=== PATIENT | female | born 1960 | race Caucasian/White ===

== ENCOUNTER → 2018-12-23 09:54 | Outpatient (CLI) | payer BC, SELFPAY ==
--- NOTE | 2018-12-23 10:08 | RAD_ITS ---
HISTORY: INFLAMMATORY POLYARTHROPATHY EXAM: Pelvis COMPARISON: None FINDINGS: # of images incl. paperwork: 1 No acute fracture of pelvis. Proximal femurs are intact. Sacroiliac joints and hip joints are normal. Femoral heads are adequately seated in their respective acetabulae. RAD/Pelvis 1 or 2 Views IMPRESSION: Normal AP pelvis. at 2320 Reported and signed by: Ronnie Grier MD Electronically Signed: Ronnie Grier MD at 23:19 EDT Tel , Service support ,
[2018-12-23 12:08] LABS: Erythrocyte Sedimentation Rate 18 mm/hr (0-30)
[2018-12-23 12:14] LABS: Absolute Neutrophil Count 8.5 X10^3/uL (2.0-7.7); Basophil# 0.04 X10^3/uL; Basophil% 0.4 % (0-1); Eosinophil# 0.14 X10^3/uL; Eosinophils% 1.3 % (0-5); Hematocrit 43.9 % (37-47); Hemoglobin 14.1 g/dl (12.0-15.0); Lymphocyte % 12.7 % (19-41); Mean Corp Hgb Conc 32.1 g/gl (32-36); Mean Corpuscular Hgb 28.7 pg (27.0-32.0); Mean Corpuscular Volume 89.2 fL (81-99); Monocyte# 0.95 X10^3/uL; Monocyte% 8.6 % (0-10); Neutrophil # 8.47 X10^3/uL (2.7-7.7); Neutrophil % 76.7 % (47-70); Platelet Count 334 K/mm3 (150-450); RBC Distribution Width CV 13.3 % (11.6-14.6); Red Blood Count 4.92 M/mm3 (4.2-5.4)
[2018-12-23 12:15] LABS: POSITIVE COUNT NO; POSITIVE DIFFERENTIAL NO; POSITIVE MORPHOLOGY NO
[2018-12-23 12:51] LABS: ALB/GLOB Ratio 0.9 RATIO (0.9-2.4); AST(SGOT) 15 U/L (15-37); Alanine Aminotransfer ALT/SGPT 22 U/L (13-56); Albumin, Serum 3.6 g/dL (3.2-5.0); Alkaline Phosphatase 105 U/L (45-117); Anion Gap 10 (5-15); BUN 18 mg/dL (7-18); BUN/Creat Ratio 22.5 RATIO (10-20); Calcium,Total 9.3 mg/dL (8.5-10.1); Chloride 106 mmol/L (98-107); EST Glomerular Filtration Rate 78 mL/min (>60); Est Glom Filt Rate - Afr Amer 94 mL/min (>60); Globulin 4.2 g/dL (2.2-4.2); Glucose 70 mg/dL (74-106); Potassium 4.1 mmol/L (3.5-5.1); Protein, Total 7.8 g/dL (6.4-8.2); Rheumatoid Factor < 10.0 IU/mL (<15); Sodium Level 143 mmol/L (136-145)
[2018-12-24 12:07] LABS: SJOGREN'S Anti-SS-A test < 0.2 AI (0.0-0.9); SJOGREN'S Anti-SS-B test < 0.2 AI (0.0-0.9)
[2018-12-25 12:24] LABS: ANTINUCLEAR ANTIBODIES DIRECT Negative (Negative)
[2018-12-30 11:15] LABS: CCP IgG Antibodies 6 units (0-19); HEPATITIS B SURFACE AG Negative (Negative); HLA B27 Negative (.); Hep B Surface Antibodies Non Reactive (.); Hep C Antibodies 0.1 s/co ratio (0.0-0.9)
== END ==
PROVIDERS: Family Provider Student in an Organized Health Care Education/Training Program; PCP Student in an Organized Health Care Education/Training Program; Referring Provider Internal Medicine Rheumatology; Visit Provider Internal Medicine Rheumatology
DX: M06.4 Inflammatory polyarthropathy (principal); F32.89 Other specified depressive episodes; F41.9 Anxiety disorder, unspecified
CPT/HCPCS: 36415; 72170; 80053; 81374; 85025; 85652; 86038; 86140; 86200; 86235; 86431; 86706; 86803; 87340

== ENCOUNTER → 2019-03-23 15:55 | Outpatient (CLI) | payer BC, SELFPAY ==
[2019-03-23 17:31] LABS: Absolute Lymphocyte Count 1.78 X10^3/uL (0.83-4.51); Absolute Neutrophil Count 6.2 X10^3/uL (2.0-7.7); Basophil# 0.07 X10^3/uL; Basophil% 0.8 % (0-1); Eosinophil# 0.21 X10^3/uL; Eosinophils% 2.3 % (0-5); Hematocrit 41.1 % (37-47); Hemoglobin 13.6 g/dL (12.0-15.0); Lymphocyte # 1.78 X10^3/ul (4.0); Lymphocyte % 19.5 % (19-41); Mean Corp Hgb Conc 33.1 g/dL (32-36); Mean Corpuscular Hgb 30.8 pg (27.0-32.0); Mean Platelet Vol. 10.5 fl (6.2-12.0); Monocyte# 0.78 X10^3/uL; Monocyte% 8.6 % (0-10); NRBC Flagged by Analyzer 0 % (0-5); Neutrophil # 6.23 X10^3/uL (2.7-7.7); Neutrophil % 68.3 % (47-70); Platelet Count 303 K/mm3 (150-450); RBC Distribution Width CV 13.4 % (11.6-14.6); RBC Distribution Width SD 45.3 fl (35.1-43.9); Red Blood Count 4.42 M/mm3 (4.2-5.4); White Blood Count 9.1 K/mm3 (4.4-11.0)
[2019-03-23 17:58] LABS: ALB/GLOB Ratio 1.1 RATIO (0.9-2.4); AST(SGOT) 18 U/L (15-37); Alanine Aminotransfer ALT/SGPT 23 U/L (13-56); Albumin, Serum 3.8 g/dL (3.2-5.0); Alkaline Phosphatase 87 U/L (45-117); Anion Gap 8 (5-15); BUN 14 mg/dL (7-18); BUN/Creat Ratio 15.9 RATIO (10-20); Calcium,Total 9.2 mg/dL (8.5-10.1); Chloride 109 mmol/L (98-107); Creatinine, Serum 0.88 mg/dL (0.55-1.02); EST Glomerular Filtration Rate 70 mL/min (>60); Est Glom Filt Rate - Afr Amer 84 mL/min (>60); Globulin 3.6 g/dL (2.2-4.2); Glucose 84 mg/dL (74-106); Potassium 3.9 mmol/L (3.5-5.1); Protein, Total 7.4 g/dL (6.4-8.2); Sodium Level 142 mmol/L (136-145)
== END ==
PROVIDERS: Family Provider Student in an Organized Health Care Education/Training Program; PCP Student in an Organized Health Care Education/Training Program; Referring Provider Internal Medicine Rheumatology; Visit Provider Internal Medicine Rheumatology
DX: M06.4 Inflammatory polyarthropathy (principal); F41.9 Anxiety disorder, unspecified; F32.89 Other specified depressive episodes; Z79.899 Other long term (current) drug therapy
CPT/HCPCS: 36415; 80053; 85025

== ENCOUNTER 2022-03-18 07:27 | Outpatient (RCR) | payer BC, SELFPAY | END 2022-03-20 23:59 | LOC: NS 07:27 | PROVIDERS: PCP Student in an Organized Health Care Education/Training Program; Referring Provider Student in an Organized Health Care Education/Training Program; Visit Provider Student in an Organized Health Care Education/Training Program | DX: Z71.3 Dietary counseling and surveillance (principal); E66.9 Obesity, unspecified; Z68.36 Body mass index [BMI] 36.0-36.9, adult | CPT/HCPCS: 97802 ==

== ENCOUNTER 2022-04-09 07:48 | Outpatient (RCR) | payer BC, SELFPAY | END 2022-04-19 23:59 | LOC: NS 07:48 | PROVIDERS: PCP Student in an Organized Health Care Education/Training Program; Referring Provider Student in an Organized Health Care Education/Training Program; Visit Provider Student in an Organized Health Care Education/Training Program | DX: Z71.3 Dietary counseling and surveillance (principal); E66.9 Obesity, unspecified; Z68.36 Body mass index [BMI] 36.0-36.9, adult | CPT/HCPCS: 97803 ==

== ENCOUNTER → 2022-04-25 | Outpatient (CLI) | payer BC, SELFPAY ==
--- NOTE | 2022-04-25 16:21 | CT_ITS ---
STUDY: CT OF THE RIGHT LOWER EXTREMITY WITHOUT CONTRAST REASON FOR EXAM: Female, 61 years old. Templating for right TKA. RADIATION DOSAGE (If Supplied By Facility): CTDIvol = ( 19.15 ) mGy, DLP = ( 2436.43 ) mGycm. Individualized dose optimization techniques were used for this CT.? TECHNIQUE: Contiguous axial images of the right hip, knee and ankle were obtained without contrast. Coronal and sagittal reconstruction and bone and soft tissue algorithm images were obtained. COMPARISON: None. FINDINGS: Osteopenia. Moderate arthrosis of the symphysis pubis. Mild arthrosis of the right hip. Moderate to marked arthrosis of the medial femorotibial compartment with osteophytes and subchondral sclerosis. Moderate arthrosis of the lateral femorotibial compartment with osteophyte formation. Moderate arthrosis of the patellofemoral compartment with osteophyte formation. Mild arthrosis of the tibiotalar and subtalar joints. Inferior calcaneal spur. CT/Extremity Lower without Contra IMPRESSION: Osteopenia with osteoarthritic changes as described. No other significant abnormality. Electronically Signed: Chico Holley, at 10:49 EDT ,
== END | disposition home or self-care (01) ==
PROVIDERS: PCP Student in an Organized Health Care Education/Training Program; Referring Provider Orthopaedic Surgery; Visit Provider Orthopaedic Surgery
DX: M17.11 Unilateral primary osteoarthritis, right knee (principal)
CPT/HCPCS: 73700

== ENCOUNTER 2022-05-21 05:27 | Day surgery (SDC) | payer BC, SELFPAY ==
[2022-05-10 14:08] LABS: Prothrombin Time (Protime)PT. 12.7 SECONDS (11.7-14.9)
[2022-05-10 14:09] LABS: Partial Thromboplast Time 26.1 Seconds (24.1-36.2)
[2022-05-10 14:14] LABS: Hemoglobin A1c 5.6 % (3.8-5.6); Magnesium 2.2 mg/dL (1.6-2.6)
[2022-05-12 09:15] LABS: Fructosamine 215 umol/L (0-285)
[2022-05-21] VITALS (9 sets, daily range): BP systolic 102–139; BP diastolic 58–74; PULSE 58–68; RESP 16; TEMP 36–36.8; O2SAT 92–99; BMI 40.1
[2022-05-21] MEDS: Gabapentin 600 MG Tablet PO (06:52)
[2022-05-21] MEDS: Acetaminophen 500 MG Tablet 1000 MG PO ×2 (06:52→14:23)
[2022-05-21] MEDS: Scopolamine 1mg/72hr Patch 1 PATCH TD (06:52)
[2022-05-21] MEDS: Celecoxib 200 MG Capsule 400 MG PO (06:52)
[2022-05-21] MEDS: Lactated Ringers 1,000 ML 15 ML IV (06:59)
[2022-05-21] MEDS: Magnesium 1 GM over 15 mins IV (07:09)
[2022-05-21 07:10] LABS: Bedside Glucose 114 mg/dL (74-106)
--- NOTE | 2022-05-21 07:17 | PCM.HP.BLA ---
History and Physical Date of Admission: 05/21/22 [facility] [address] [place] [address] OFFICE VISIT Date of Service:? 02/06/22 MR#: [id number] Acct: [id number] Name:JOSHUA MARTE Rep #: [id number] : 1960 ? ? Provider: Dr. Chris Burrell, Age/Sex:? 61/F ? ? [place] [facility] [place] Status: Signed Intake Intake Visit Reasons:?RIGHT KNEE Allergies No Known Allergies Allergy (Verified 10/15/21 09:26) Medications citalopram 20 mg tablet tablet PO 10/15/21 [History Confirmed 02/06/22] PFSH Surgical History?(Updated 02/06/22 @ 13:57 by Chelsie Arzate) History of arthroscopy of left knee Social History?(Updated 10/15/21 @ 09:28 by Geraldine Smith) household members:? significant other Smoking Status:? Never smoker HPI RIGHT KNEE Details: Parts of this documentation were recorded by a scribe, this documentation accurately reflects the service provided and the decisions made by me, Dr. Chris Burrell, DO 02/06/22 0756. JOSHUA SCHMIDT is a 61 year old F here today for? F/U on the right knee. She states that the steroid injection she had in 09/2021 was helpful until recently. She is here today to discuss other options for the pain. She states that she has had Visco injections previously which was not helpful at the time. She had these completed at [facility] prior to transferring her care to our office. Denies any PT, denies any bracing. She states that the pain is constant. She feels that the knee will give out on her at times. She states that the giving out is painful. She states that most of her pain is anterior medial. Denies any radiating pereira. Denies numbness, tingling or other associated symptoms. Ortho Exam General General: Yes no acute distress Neurologic: Yes alert and Yes oriented x3 Psychologic: Yes reasonable and appropriate Right Knee Skin/Wound: No erythema, No ecchymosis and No swelling Homans Sign: No Knee ROM: Yes ROM-Extension -20 to 0 and No ROM-Flexion 0-140 (120) Examination: Yes Med jt line tenderness, Yes Crepitus and Yes TTP Pes Anserine Stability: NML: Anterior Drawer, NML: Posterior Drawer and NML: Varus 30 and 1+: Valgus 30 (3mm medial gapping d/t joint space narrowing) Patella Grind: Yes KNEE: no joint effusion Office Procedures Ortho Injections Injections Yes Knee Right and Yes Pes anserine Bursa Injection Right Details: Obtained consent for injection.? Under sterile conditions, injected the patient's right knee with 1.5cc bupivacaine, 1.5cc lidocaine and 1.5cc Kenalog.? The patient tolerated the injection well without any noted complication.? Patient should call our office if redness develops, pain worsens or if they have any concerns. Obtained consent for injection.? Under sterile conditions, injected the patients right pes anserine bursa with 1cc Bupivacaine, 1cc Lidocaine and 1cc Kenalog.? The patient tolerated the injection well without any noted complication.? Patient should call our office if redness develops, pain worsens or if they have any concerns. Office [facility]in [facility] Performing Provider: Chris Burrell DO Administered by: Chris Burrell DO on 02/06/22 14:28 Dose Route Admin Location Lot Number Expiration Date NDC Emergency Generator Mechanic 100 mg intra-articular right knee, pes bursa inj [id number] 12/19/22 3199-4079-28 [facility] Supplemental Info 02/06/2022 x-ray right knee: Severe medial joint space narrowing with varus deformity moderate patellofemoral arthrosis mild to moderate spurring of the lateral compartment Coding Level of Care Code Off vis,est,level 3 Diagnoses Osteoarthritis of right knee? M17.11 Pes anserine bursitis? M70.50 CPT Codes sap basis consultant.pes () sap basis consultant.knee () Assessment and Plan Assessment and Plan (1) Osteoarthritis of right knee: ?Status:?Acute (2) Pes anserine bursitis: ?Status:?Acute ? ? ? Orders: Orders Ortho Injections Today M17.11 - Unilateral primary osteoarthritis, right knee, M70.50 - Other bursitis of knee, unspecified knee ? Knee 4 or More Views Today M17.11 - Unilateral primary osteoarthritis, right knee ? Plan Obtained X-rays of patient's right knee. Personally reviewed x-rays. There is no obvious fracture, dislocation, or lucency noted. Patient educated that she has severe medial sided joint space narrowing along with patellofemoral OA. Treatment options are do nothing or repeat steroid injection or NSAID or PT for strengthening or chlorine cells operator bracing or TKA.?Risks, benefits and alternatives of surgery reviewed including but not limited to bleeding, infection, nerve, artery and/or tissue damage, fracture, VTE, mechanical feel of the knee, continued pain, stiffness and expected post-operative course. She wishes to proceed with steroid injection of the right knee and a pes anserine bursa injection. Pt aware that she cant have a TKA for 3 months after the injections. Follow up PRN or sooner if pain, swelling, numbness or associated symptoms, or concerns develop.? All questions answered. Patient in agreement of plan. 02/06/22 1451 <Electronically signed by Chris Burrell DO> Date Chris Burrell DO Cosigner Signature: Date (if applicable) ? CC: ? ~I have examined the patient and the H&P has been reviewed. There are no clinical changes since date of exam.
[2022-05-21] MEDS: Cefazolin 2 GM in 0.9% Normal Saline 100 ML IV ×2 (08:03→11:17)
[2022-05-21] MEDS: dexAMETHasone 10 MG/ML Vial IV (08:15)
[2022-05-21] MEDS: TXA 1000mg in NS100 100ml (IVPB at Incision) 660 MG IV (08:15)
--- NOTE | 2022-05-21 08:15 | KNEE_PTH ---
PATIENT: JOSHUA SCHMIDT [place] [facility] [id number] AGE/SX: 61/F ROOM: RE05/21/[address]: Dr. Chris Burrell DO : 1960 BED: DIS: 05/21/2022 SPEC #: [id number] RECD: 05/21/22 13:22 STATUS: HESHAM RERoger #: [id number] JOSSE: 05/21/22 08:[address]: Chris Burrell DEPT: SURGICAL PATHOLOGY RECD BY: Meri Christianson ENTERED: 05/21/22 13:39 SP TYPE: TOTAL KNEE OTHR DR: Dr. Storm Pickett, Tissues: Knee, NOS Procedures: Decalcification bone/plaque Surgery Specimen Level IV HEADER OPERATION: ERAS, total knee replacement robotic arm assist PRE-OP DIAGNOSIS: Osteoarthritis of right knee, pes anserine bursitis TISSUE SUBMITTED: Bone and soft tissue right knee MICROSCOPIC DIAGNOSIS Bone and tissue of right knee, total knee resection: Severe degenerative joint disease. Mild synovial hyperplasia. AM:tahira 05/24/2022 MICROSCOPIC DESCRIPTION Slides are reviewed. GROSS DESCRIPTION Received is one container designated bone and soft tissue right knee. The specimen consists of multiple fragments of ward-yellow bone measuring in aggregate 16 x 10 x 2 cm. Also in the specimen container are multiple fragments of yellow-white soft tissue measuring in aggregate 2 x 1.5 x 0.5 cm. A number of bony fragments contain articular surfaces consistent with tibial plateau and femoral condyle and displaying prominent osteophyte formation, eburnation, and bone erosion. Information Security Associate sections are submitted in two cassettes as follows: 1 - soft tissue, 2 - bone after decalcification. / AM:tahira 05/21/2022 TC:5 [facility]: [id number], [id number]
[2022-05-21] MEDS: TXA 1000mg in NS100 100ml (IVPB at Closure) 660 MG IV (08:48)
[2022-05-21] MEDS: Lactated Ringers 1,000 ML 125 ML IV (09:01)
[2022-05-21] MEDS: 0.9% Normal Saline (Pres. free 10 ML Vial (09:38)
[2022-05-21] MEDS: Bupivacaine 0.25% 30 ML Vial (09:38)
[2022-05-21] MEDS: Betamethasone/Betamethasone 30 MG/5 ML Vial (09:38)
[2022-05-21] MEDS: Epinephrine (1 mg/ml) 1 MG/ML VIAL (09:38)
--- NOTE | 2022-05-21 10:17 | OP.PCM_ITS ---
Operative Report Date of Procedure: 05/21/22 Preoperative diagnosis: Right knee DJD Postoperative diagnosis: Same Procedure: Right total knee arthroplasty CT guided Robotic Assisted Implant: Plover triathlon press fit, femoral component size3, tibial baseplate size 4, asymmetric patella size 35, polyethylene X3 size 9 CS Anesthesia: Spinal with adductor canal block Tourniquet time: 18 minutes at 300 mmHg Complications: None Condition: Stable to PACU Estimated blood loss: 250 cc Indication for procedure: This is a 61-year-old female with long standing degenerative joint disease of the knee who has failed conservative treatment and wished to proceed with elective total knee arthroplasty. Risk benefits and alternatives were reviewed including; risk of bleeding, infection, nerve artery and tissue damage, continued pain, postoperative stiffness, venous thromboembolism, need for postoperative rehabilitation, mechanical feel to the knee, and expected postoperative course. The pre- operative CT and templating was performed with component sizing. Procedure: The patient was met in the preoperative holding area. The operative extremity was identified by both patient and physician and was marked. Patient was met by anesthesia. An adductor canal block was placed by anesthesia postoperatively the patient was brought back to the operating room on a wheeled cart and transferred to the operating table in the supine position. Anesthesia was started. A well-padded tourniquet was placed on the operative extremity. The patient was prepped and draped in the usual sterile fashion. A timeout was called to ensure the proper patient procedure and extremity were being contemplated. An esmarch was used to exsanguinate the extremity. The tourniquet was inflated. A 10 blade scalpel was used to make a midline incision down through the skin and subcutaneous tissue. Skin retractors placed. Bovie and Aquamantis were used to perform meticulous hemostasis. full-thickness flaps were elevated medial and lateral along the joint capsule. A deep blade scalpel was used to perform a medial parapatellar arthrotomy. The knee was brought to full extension. A bovie was used to release the soft tissues off the most proximal aspect of the medial tibial plateau, a three-quarter inch curved osteotome was also used in this process. The infrapatellar fat pad was excised. The suprapatellar fat pad was excised partially anteriorolateraly and portion the anterioromedial pad was elevated from the femur. At this point our intra- articular femoral array was placed at a 45 degree angle proximal and posterior to the medial epicondyle. femoral checkpoint was placed at this time. Our tibial array was placed greater than 1 hands breath below the incision at a 20 degree angle stab incisions were made with a 15 blade scalpel and pins were placed and attached to the tibial array , tibial checkpoint was placed in the pr oximal tibial metaphysis. Tourniquet was let down. At this point registration villalpando were taken throughout the knee . Once the knee was registered we then tensioned the medial and lateral ligaments in extension and 90 degrees of flexion. We then used these numbers to adjust our components within parameters to balance the knee in both flexion and extension once this was done on our monitor we then proceeded with using the robotic arm to make our tibial plateau cut, anterior and posterior chamfer and distal femur cuts. we removed the cut fragments with the use of a bovie and Sola, we did use a lamina pattern assembler to insure we visualized and removed all posterior osteophytes and at this time also used the Aquamantis on the posterior joint capsule. we then trialed and achieved the desired plan with a well-balanced knee. we used the green probe to darwin the corresponding tibial rotation based on our CT template. Lug holes were drilled in the femur the tibia preparation was completed with the appropriate sized base plate pinned based on previous rotation darwin. An appropriate sized fin punch was used on the tibia and 4 corner drill was used for the press fit component and the patella was prepared by first using a caliper to ensure sufficient bone stock and a patellar reamer to remove the desired amount of bone. lug holes drilled for an asymmetric poly. We then brought the knee through range of motion with excellent patellar tracking. We thoroughly irrigated the knee. Trial components were removed a posterior capsular injection was preformed with our standard cocktail. In addition the aqua Mantis was also used to aid in hemostasis. Betadine rinse was allowed to sit and washed out completely. Components were press-fit into place. Aricept rinse was then used followed by several more liters of irrigation after it was allowed to sit. The joint capsule was closed with #1 Ethibond [id number] followed by Vicryl in the subcutaneous tissues and running 3-0 Monocryl stitch Cavilon and Steri-Strips followed by a Mepilex Ag dressing. Arrays and checkpoints were removed prior to closure all counts were correct stab incisions were closed with a subcutaneous Monocryl stitch and covered with Steri-Strips and a Mepilex dressing. Thigh-high GONZÁLEZ hose applied over top of dressing. Patient tolerated the procedure well and was directed to PACU in stable condition . There were no intraoperative complications.
--- NOTE | 2022-05-21 10:23 | DCINST_ITS ---
Discharge Instructions Dressing / Incision Call your doctor if you observe: Shortness of breath and Chest pain Additional Dressing/Incision Instructions:: Ice and elevate lower extremities 2 weeks while not ambulating. Ambulation is encouraged. Weight bearing as tolerated. Use assistive devise for stability. Encourage FULL knee extension and flexion 1 time EVERY time you get up and down and MULTIPLE times per day. No showering 72 hours after surgery. Begin showering postop day #3. Remove the dressing prior to shower and gently wash with warm water and antibacterial soap then pat dry and place abdominal pad (or plain gauze) and GONZÁLEZ hose over top. This is to be done daily. Do not submerge for 3 weeks. If not showering daily after the initial 72 hours then you must clean incision and change dressing daily. Do not allow animals near the incision area. Keep clean. Follow anti-coagulation recommendations as prescribed. Do not take any NSAIDs while on blood thinner. Do not take any additional narcotic pain medication other than what was prescribed on your surgery day without discussing with physician. Narcotic medication can be addictive. Do not drink alcohol while taking narcotics. Supplement narcotic prescription with acetaminophen 1000 mg 4 times a day. Start physical therapy. If you are not currently scheduled for physical therapy or you are unsure of appointment time please call office [facility] to arrange. Call Dr. Burrell with any concerns. Follow Up Care Please Follow Up With: Chris Burrell DO When: 2 weeks Test Results: Test results from this visit will be discussed in further detail at your follow- up appointment, if applicable. Discharge Plan Admission Attending Provider: Chris Burrell Primary Care Provider: Storm Pickett Discharge Orders/Prescriptions Prescriptions: New acetaminophen [acetaminophen] 500 mg tablet 1,000 mg PO Q6H PRN Qty: 100 0RF cephalexin [cephalexin] 500 mg capsule 1,000 mg PO Q8 Qty: 4 0RF Rx Instructions: take 2 tabs at 9:00 pm and 2 tabs after 5 am when you wake up Eliquis 2.5 mg tablet 2.5 mg PO BID Qty: 28 0RF Rx Instructions: begin the morning after sugery to prevent blood clot oxycodone 5 mg tablet 5 - 10 mg PO Q4H PRN (Reason: pain) 7 Days Qty: 60 0RF Continued citalopram 20 mg tablet 20 tablet PO DAILY valacyclovir 500 mg tablet 500 mg PO DAILY esomeprazole magnesium 20 mg Capsule,Delayed Release(Dr/Ec) 20 mg PO DAILY Referrals / Follow Up: Storm Pickett DO [Primary Care Provider] - Disposition Disposition (needs filled in before D/C Order can be placed): Home, Self Care
--- NOTE | 2022-05-21 10:45 | RAD_ITS ---
STUDY: X-RAY - RIGHT KNEE REASON FOR EXAM: Female, 61 years old. Post op in pacu -- in PACU TECHNIQUE: 2 view(s) of the knee. COMPARISON: None. FINDINGS: There is a visualized three-part right knee arthroplasty. There is postoperative gas overlying the right knee. There is gas in the joint space. The arthroplasty appears to be in anatomic position and alignment. RAD/Knee 1 or 2 Views IMPRESSION: There is post right knee arthroplasty with postoperative change which appears to be in anatomic position and alignment. Electronically Signed: Shilpa Rubio MD at 4:49 EDT Reading Location ID and State: [facility] / [place] Tel , Service support ,
[2022-05-21] MEDS: Ketorolac 30 MG/ML Syringe 15 MG IV (11:12)
== END 2022-05-21 14:45 | disposition home or self-care (01) ==
LOC: SDC 05:28 → AC 05:29
PROVIDERS: Anesthesiology; PCP Student in an Organized Health Care Education/Training Program; Referring Provider Orthopaedic Surgery; Visit Provider Orthopaedic Surgery
PROC: 0SRC0JZ Replacement of Right Knee Joint with Synthetic Substitute, Open Approach (ICD-10-PCS; CPT 27447; principal; 2022-05-21 07:45)
DX: M17.11 Unilateral primary osteoarthritis, right knee (principal); M70.51 Other bursitis of knee, right knee; Z79.899 Other long term (current) drug therapy
CPT/HCPCS: 27447; 64447; 01402; 36415; 73560; 82962; 82985; 83036; 83735; 85610; 85730; 86850; 86900; 86901; 87081; 88305; 88311; 97162; C1776; J7120; J0702; J2405; J3475; J3490

== ENCOUNTER 2022-06-20 10:00 | Outpatient (RCR) | payer BC, SELFPAY ==
--- NOTE | 2022-05-06 14:01 | HP.PTEVAL ---
Patient's Visit Information JOSHUA SCHMIDT is a 61 year old F referred to Physical Therapy by Dr. Chris Burrell DO with a diagnosis of R knee OA. Date of Evaluation: 05/06/22 Physical Therapist: Carrillo Alfredo, PT, ATC - Visit Plan Frequency: 1x/Week Duration: 1 Week Plan: Issue and instruct pt in HEP of R LE and core strengthening - Subjective Pt reports she has had R knee pain for several years. Pt notes she has always just been able to put off anything until recently. Pt notes she likes to travel, but is limited secondary to her R knee pain. Pt reports she is retired from [employer] where she stood on a concrete floor and had to negotiate stairs frequently. Pt reports her R knee will give out on her, especially when she is walking trails. Pt reports no R LE tingling or numbness at this time. Pt reports sleep difficulty secondary to pain. Pt reports she is able to negotiate stairs, but must do so one step at a time. Pt reports she has had xrays and a CT scan, which raveled significant OA. 0/10 pain in R knee while sitting here at rest, 9/10 pain at worst (with prolonged ambulation) - Pain R knee Pain Intensity (Out of 10): 0 Pain Intensity Range: 9 - Objective Neuro: B LE sensation is WNL to light touch. B patellar reflex= 2/3. Girth at joint line: R knee 45 cm, L knee 43 cm. ROM: L knee 0-128 degrees, R knee 0-10-95 degrees. MMT: L knee flex= 30, ext= 34; R knee flex= 30, ext= 28 #F - Balance/Special Test Scores Lower Extremity Functional Score: 29 - Goals Goal 1:: I with HEP in one visit Goal Time Frame: 1 Week - Rehabilitation Potential Physical Therapy Diagnosis: Pt has R knee pain, weakness, and limited ROM secondary to R knee OA Rehabilitation Potential: Good - Anticipated Interventions Patient/Client Instruction: Educate patient on: Condition, Plan of Care For the Purpose of:: To improve self management Therapeutic Exercise to Include: Strength training, Endurance training, Balance training, Dynamic Lumbar Stabilization For the Purpose of:: To decrease pain, To increase ROM, To improve muscle performance and motor function Cryotherapy (ice pack, ice massage): Yes For the Purpose of:: To decrease pain Thank you for the opportunity to evaluate your patient. For Medicare and Medicare HMO plans, please review the plan of care and approve it. It will need to be FAXED BACK to us at [phone] for Medicare purposes. For Medicare only, by signing this I certify the plan of care. Please let me know if there are questions or concerns regarding this plan of care. Physician Signature: Date:
--- NOTE | 2022-05-23 11:57 | HP.PTREVAL ---
Dr. Chris Burrell, DO, It has been my pleasure to treat JOSHUA SCHMIDT over the last 3 visits for R knee OA. Please see the progress note below for an update on the physical therapy plan of care! Subjective: Pt returns today post-op R TKA. DOS: 05/21/22. Pt reports she is right about where she thought she would be at. Pt reports sleep difficulty at this time secondary to pain. Pt notes she has been ambulating with a walker at this time. Pt denies tingling or numbness at this time. Pt reports she is to follow up with Dr. Burrell in 2 weeks. Pt reports the sharp pain she had prior to surgery is now gone, but the surgical pain is still bad. Pt is excited to begin rehab. Pt reports she has been performing her HEP 2 times per day. Pt reports her pain is 8/10 while sitting here in the clinic, but increases to 10/10 with ambulation Objective/Function: Observation: Incisions are still covered. Appears to be healing well with no signs of infection. Girth at joint line: R knee 48 cm, L knee 45 cm. ROM: L knee 0-6-127, R knee 0-20-83. MMT: L knee flex= 33, ext= 47; R knee flex= 11, ext= 13 #F. Gait: Pt is able to ambulate 120 feet until needing to rest. Very slow cadance. Pt ambulates with a WW. TU.32 Plan Plan: R knee PROM/mobs, stretching and strengthening, core strengthening, balance and proprio, nustep, and HEP Balance/Gait/Functional tests - Balance/Special Test Scores Lower Extremity Functional Score: 29 Goals Goal 1:: I with HEP Goal Time Frame: 4-6 Weeks Goal 2:: Decrease R knee pain x 50% to aid with sleep Goal Time Frame: 4-6 Weeks Goal 3:: Increase R knee ROM x 30 degrees to aid with restoring a more normalized gait pattern Goal Time Frame: 4-6 Weeks Goal 4:: Increase R knee strength x 25 #F to aid with stair negotiation Goal Time Frame: 4-6 Weeks Anticipated Interventions Patient/Client Instruction: Educate patient on: Condition, Plan of Care For the Purpose of:: To improve self management Therapeutic Exercise to Include: Strength training, Endurance training, Balance training, Dynamic Lumbar Stabilization For the Purpose of:: To decrease pain, To increase ROM, To improve muscle performance and motor function Cryotherapy (ice pack, ice massage): Yes For the Purpose of:: To decrease pain Please do not hesitate to contact me at [phone] by phone or if you have questions or concerns regarding this new plan of care! Sincerely, Carrillo Alfredo, PT, ATC
--- NOTE | 2022-06-20 10:58 | HP.PTREVAL_ITS ---
Dr. Chris Burrell, DO, It has been my pleasure to treat JOSHUA SCHMIDT over the last 11 visits for R TKR 05/21/22. Please see the progress note below for an update on the physical therapy plan of care! Subjective: I feel really good today. I leave on Friday for [facility] for 1 month Objective/Function: R knee pain ranges from 2-4/10. R knee ROM: 0-6-110. R knee MMT: flex= 34, ext= 43 #F. Pt is I with HEP Plan Plan: Recheck when pt returns from [facility] in one month Balance/Gait/Functional tests - Balance/Special Test Scores Lower Extremity Functional Score: 53 Goals Goal 1:: I with HEP Goal Time Frame: 4-6 Weeks Goal Progress: Goal Met Goal 2:: Decrease R knee pain x 50% to aid with sleep Goal Time Frame: 4-6 Weeks Goal Progress: Goal Met Goal 3:: Increase R knee ROM x 30 degrees to aid with restoring a more normalized gait pattern Goal Time Frame: 4-6 Weeks Goal Progress: Progressing Goal 4:: Increase R knee strength x 25 #F to aid with stair negotiation Goal Time Frame: 4-6 Weeks Goal Progress: Progressing Anticipated Interventions Patient/Client Instruction: Educate patient on: Condition, Plan of Care For the Purpose of:: To improve self management Therapeutic Exercise to Include: Strength training, Endurance training, Balance training, Dynamic Lumbar Stabilization For the Purpose of:: To decrease pain, To increase ROM, To improve muscle performance and motor function Cryotherapy (ice pack, ice massage): Yes For the Purpose of:: To decrease pain Please do not hesitate to contact me at [phone] by phone or Fax: if you have questions or concerns regarding this new plan of care! Sincerely, Carrillo Alfredo, PT, ATC
== END 2022-06-20 19:00 | disposition home or self-care (01) ==
LOC: PT 10:00
PROVIDERS: PCP Student in an Organized Health Care Education/Training Program; Referring Provider Orthopaedic Surgery; Visit Provider Orthopaedic Surgery
DX: M17.11 Unilateral primary osteoarthritis, right knee (principal)
CPT/HCPCS: 97110; 97140; 97161; 97164